=== PATIENT | male | born 1940 | race Caucasian/White ===

== ENCOUNTER 2021-11-29 16:31 | Emergency (ER) | payer MEDICARE, MEDICAID ==
[~2021-11-29] VITALS: Ht 157.5 cm; Wt 66.0 kg
[~2021-11-29 16:31] MED LIST: CLOP75TA33 MT; METF-873 PO; OMEP20CA14 MT; SIMV-43 PO
[2021-11-29 17:25] LABS: BASOPHILS % 0.7 % (0.0-2.0); EOSINOPHILS % 1.6 % (0.0-5.0); HEMATOCRIT. 47.1 % (42.0-52.0); HEMOGLOBIN. 15.6 g/dL (14.0-18.0); LYMPHOCYTES % 19.9 % (20.0-50.0); MEAN CORPUSCULAR HEMOGLOBIN 26.2 pg (28.0-32.0); MEAN CORPUSCULAR VOLUME 79.4 fL (80.0-94.0); MONOCYTES % 7.4 % (2.0-8.0); NEUTROPHILS % 70.4 % (40.0-76.0); PLATELET 126 x1000/uL (130-400); RED BLOOD CELL COUNT 5.93 mill/uL (4.7-6.1); RED CELL DISTRIBUTION WIDTH 15.4 % (11.6-14.6)
[2021-11-29 17:29] LABS: CHLORIDE 106 mEq/L (98-107)
[2021-11-29] MEDS ORDERED: HYDROCODONE/ACETAMINOPHEN 5/325MG TABLET PO ONE (17:30)
[2021-11-29 18:04] LABS: CLARITY URINE CLEAR (CLEAR); COLOR URINE YELLOW (YELLOW); KETONES URINE NEGATIVE (NEGATIVE); LEUKOCYTE ESTERASE URINE NEGATIVE (NEGATIVE); NITRITE URINE NEGATIVE (NEGATIVE); OCCULT BLOOD URINE 2+ (NEGATIVE); PROTEIN URINE TRACE (NEGATIVE); SPECIFIC GRAVITY URINE 1.007 (1.005-1.030); UROBILINOGEN URINE 0.2 E.U./dL (0.2-1.0)
[2021-11-29 18:12] VITALS: BP 148/63
== END 2021-11-29 19:00 | disposition home or self-care (01) ==
LOC: ER 16:31
DX: R33.9 Retention of urine, unspecified (principal); I25.10 Atherosclerotic heart disease of native coronary artery without angina pectoris; E78.00 Pure hypercholesterolemia, unspecified; I10 Essential (primary) hypertension; Z79.899 Other long term (current) drug therapy
CPT/HCPCS: 36415; 51702; 80053; 81003; 85025; 99284; A4315

== ENCOUNTER 2022-07-21 17:41 | Emergency (ER) | payer MEDICARE, MEDICAID ==
[~2022-07-21] VITALS: Ht 165.1 cm; Wt 65.0 kg
[2022-07-21] MEDS ORDERED: TAMS-11 MT (21:23)
[2022-07-21] MEDS ORDERED: CIPR-264 MT (21:23)
[2022-07-21 21:40] VITALS: BP 160/92
== END 2022-07-21 21:46 | disposition home or self-care (01) ==
LOC: ER 17:41
DX: N40.1 Benign prostatic hyperplasia with lower urinary tract symptoms (principal); R33.8 Other retention of urine; I25.10 Atherosclerotic heart disease of native coronary artery without angina pectoris; I10 Essential (primary) hypertension; E78.00 Pure hypercholesterolemia, unspecified; Z98.61 Coronary angioplasty status
CPT/HCPCS: 99283